=== PATIENT | female | born 1960 | race Caucasian/White ===

== ENCOUNTER 2021-12-30 20:51 | Emergency (ER) | payer BC ==
[2021-12-30] MEDS ORDERED: Ketorolac 30 MG/ML SDV IM ONE (22:42)
[2021-12-30] MEDS ORDERED: Bacitracin Oint 1 GM U/D Packet TOP ONE (22:42)
== END 2021-12-30 23:17 | disposition home or self-care (01) ==
LOC: JP.ED 20:51
DX: S61.217A Laceration without foreign body of left little finger without damage to nail, initial encounter (principal); W26.8XXA Contact with other sharp object(s), not elsewhere classified, initial encounter
CPT/HCPCS: 96372; 99282; J1885